=== PATIENT | female | born 1965 | race Caucasian/White ===

== ENCOUNTER 2017-06-13 09:58 | Outpatient (CLI) | payer BC | END 2017-06-13 09:59 | disposition home or self-care (01) | LOC: BICMAMMO 09:58 | PROVIDERS: ATTEND Obstetrics & Gynecology | DX: Z12.31 Encounter for screening mammogram for malignant neoplasm of breast (principal) | CPT/HCPCS: 77063; 77067 ==

== ENCOUNTER 2019-02-25 13:54 | Outpatient (CLI) | payer BC ==
--- NOTE | 2019-02-25 14:30 | ULT ---
VENOUS DOPPLER ULTRASOUND OF THE LEFT LOWER EXTREMITY: HISTORY: Left lower extremity pain and swelling. TECHNIQUE: Landry-scale ultrasound with color-flow and spectral Doppler imaging of the deep venous system of the l eft lower extremity is performed. FINDINGS: There is good flow, compression and augmentation noted in the left common femoral, femoral, deep femo ral, popliteal, posterior tibial and greater saphenous veins. IMPRESSION: No evidence of deep venous thrombosis in the left lower extremity. POS: OFF
== END 2019-02-25 13:55 | disposition home or self-care (01) ==
LOC: BICULT 13:54
PROVIDERS: ATTEND Family Medicine
DX: I82.402 Acute embolism and thrombosis of unspecified deep veins of left lower extremity (principal)

== ENCOUNTER 2019-04-11 14:02 | Outpatient (CLI) | payer BC ==
--- NOTE | 2019-04-11 15:38 | MRI ---
MR LUMBAR SPINE WITHOUT CONTRAST: 04/11/19 INDICATION: 53-year-old female with left sided radiculopathy and sciatic pain. COMPARISON: None. FINDINGS: Bone marrow signal intensity appears within normal limits. No acute fracture is demonstrated. The vis ualized aspects of the retroperitoneum and perivertebral soft tissues appear within normal limits. At L5-S1, there is an asymmetric to the left broad based disc bulge with severe left and moderate rig ht facet joint degenerative change. Constellation of findings induce moderate left and mild right segundo ral foraminal narrowing. At L4-5, there is a broad based bulge with facet hypertrophy inducing mild bilateral neural foraminal narrowing. At L3-4, there is a broad based bulge with facet hypertrophy inducing mild bilateral neural foraminal narrowing. At L2-3, there is a broad based bulge with no appreciable central canal or neural foraminal narrowing . At L1-2, there is no appreciable central canal or neural foraminal narrowing. At T12-L1, there is mild broad based bulge but no appreciable central canal or neural foraminal narro wing. IMPRESSION: Mild spondylosis of the lumbar spine most pronounced at L5-S1 where there is moderate left and mild r ight neural foraminal narrowing. POS: OFF
== END 2019-04-11 14:03 | disposition home or self-care (01) ==
LOC: TBSIIMAG 14:02
PROVIDERS: ATTEND Specialist
DX: M51.17 Intervertebral disc disorders with radiculopathy, lumbosacral region (principal); M47.26 Other spondylosis with radiculopathy, lumbar region; M47.27 Other spondylosis with radiculopathy, lumbosacral region; M48.061 Spinal stenosis, lumbar region without neurogenic claudication
CPT/HCPCS: 72148

== ENCOUNTER 2020-09-24 07:54 | Outpatient (CLI) | payer BC | END 2020-09-24 07:55 | disposition home or self-care (01) | LOC: BICULT 07:54 | PROVIDERS: ATTEND Family Medicine | DX: R10.84 Generalized abdominal pain (principal); Z90.49 Acquired absence of other specified parts of digestive tract | CPT/HCPCS: 93975 ==

== ENCOUNTER 2021-06-10 09:17 | Outpatient (CLI) | payer BC | END 2021-06-10 09:18 | disposition home or self-care (01) | LOC: TBSIIMAG 09:17 | PROVIDERS: ATTEND Neurological Surgery | DX: M54.2 Cervicalgia (principal); M54.50 Low back pain, unspecified; M47.812 Spondylosis without myelopathy or radiculopathy, cervical region; Z98.890 Other specified postprocedural states; M47.816 Spondylosis without myelopathy or radiculopathy, lumbar region | CPT/HCPCS: 72040; 72100 ==

== ENCOUNTER 2023-08-02 09:49 | Outpatient (CLI) | payer BC | END 2023-08-02 09:50 | disposition home or self-care (01) | LOC: SCSMRI 09:49 | PROVIDERS: ATTEND Specialist | DX: M51.16 Intervertebral disc disorders with radiculopathy, lumbar region (principal); M47.26 Other spondylosis with radiculopathy, lumbar region; M48.061 Spinal stenosis, lumbar region without neurogenic claudication; M48.07 Spinal stenosis, lumbosacral region | CPT/HCPCS: 72148 ==

== ENCOUNTER 2025-05-06 10:03 | Outpatient (CLI) | payer BC | END 2025-05-06 10:04 | disposition home or self-care (01) | LOC: BICRAD 10:03 | PROVIDERS: ATTEND Family Medicine | DX: M19.90 Unspecified osteoarthritis, unspecified site (principal) ==